=== PATIENT | male | born 1930 | race Caucasian/White ===

== ENCOUNTER 2017-12-09 00:40 | Inpatient (IN) ==
[2017-12-15 11:54] VITALS: BP 151/82
== END 2017-12-15 14:07 | disposition home or self-care (01) | DRG 435 ==
LOC: N.2E 01:14 → SUATTDRO 01:14
PROVIDERS: ADMIT Internal Medicine; ATTEND Internal Medicine
PROC: ERCPWST (ICD-10-PCS; 2017-12-14 12:05)

== ENCOUNTER 2018-01-20 08:28 | Inpatient (IN) ==
[2018-01-20] MEDS ORDERED: PANTOPRAZOLE 40 MG VIAL IV STA (09:03)
[2018-01-20 09:37] LABS: Basophils % 0.3 % (0.0-0.8); Hematocrit 19.7 VOL% (42.0-52.0); Immature Granulocytes Absolute 0.08 #; Lymphocytes # 0.6 10*3/uL (1.4-4.0); Lymphocytes % 7.3 % (21.2-54.2); Mean Corpuscular Hemoglobin 32 PG (27-34); Monocytes # 0.4 10*3/uL (0.11-0.8); Monocytes % 4.4 % (1.7-12.7); Neutrophils # 6.9 10*3/uL (1.4-7.4); Platelet Count 136 T/CUMM (130-400); Red Blood Count 1.95 MC/CUMM (3.8-5.5); White Blood Count 7.9 T/CUMM (4-12)
[2018-01-20 09:42] LABS: Hemoglobin 6.3 GM/DL (14.0-18.0)
[2018-01-20 09:47] LABS: INR 1.1; PT Patient Result 11.2 SECS; Partial Thromboplastin Time 23.3 SECS (0-40)
[2018-01-20 09:53] LABS: Alanine Aminotransferase 14 U/L (16-61); Albumin 2.5 G/DL (3.4-5.0); Alkaline Phosphatase 94 U/L (45-117); Aspartate Amino Transferase 12 U/L (0-37); Bilirubin,Total < 0.39 MG/DL (0.2-1.0); Blood Urea Nitrogen 46 MG/DL (7-18); Calcium 7.8 MG/DL (8.5-10.1); Glucose 127 MG/DL (74-106); Osmolality,Calculated 299.8 MOS/KG (273-304); Potassium 4.7 MMOL/L (3.5-5.1); Sodium 144 MMOL/L (136-145); Total Protein 5.3 G/DL (6.4-8.3)
[2018-01-20] MEDS ORDERED: SODIUM CHLORIDE 0.9% 1,000 ML IV PRN (13:55)
[2018-01-20] MEDS ORDERED: NITROGLYCERIN SL 0.4 MG TABLET SL PRN (17:31)
[2018-01-20] MEDS: SODIUM CHLORIDE 0.9% 1,000 ML IV SCH (19:04)
[2018-01-21 05:59] LABS: Basophils % 0.2 % (0.0-0.8); Eosinophils # 0.1 10*3/uL (0.0-0.87); Eosinophils % 0.5 % (0.00-10.9); Hematocrit 21.7 VOL% (42.0-52.0); Hemoglobin 7.1 GM/DL (14.0-18.0); Immature Granulocytes % 1.1 %; Lymphocytes # 1.5 10*3/uL (1.4-4.0); Lymphocytes % 16.6 % (21.2-54.2); Mean Corpuscular HGB Conc 32.7 GM/DL (32-36); Mean Corpuscular Hemoglobin 31 PG (27-34); Mean Corpuscular Volume 94.8 FL (87-102); Monocytes # 0.7 10*3/uL (0.11-0.8); Monocytes % 7.3 % (1.7-12.7); Neutrophils # 6.9 10*3/uL (1.4-7.4); Neutrophils % 74.3 % (38.7-73.9); Platelet Count 132 T/CUMM (130-400); Red Blood Count 2.29 MC/CUMM (3.8-5.5); Red Cell Distribution Width 16.8 % (9.3-17.3); White Blood Count 9.3 T/CUMM (4-12)
[2018-01-21 06:16] LABS: Osmolality,Calculated 305.7 MOS/KG (273-304); Potassium 4.5 MMOL/L (3.5-5.1)
[2018-01-21] MEDS ORDERED: SODIUM CHLORIDE 0.9% 1,000 ML IV PRN ×2 (07:28→23:23)
[2018-01-21] MEDS ORDERED: LISINOPRIL 20 MG TABLET PO SCH (09:00)
[2018-01-21] MEDS: SODIUM CHLORIDE 0.9% 1,000 ML IV SCH ×3 (09:20→20:55)
[2018-01-21] MEDS: FAMOTIDINE 20 MG TABLET PO SCH (09:22)
[2018-01-21] MEDS: MULTIVITAMIN (CENTRUM) TABLET PO SCH (09:22)
[2018-01-21] MEDS: PANTOPRAZOLE 40 MG TABLET PO SCH (09:22)
[2018-01-21] MEDS: ATENOLOL 25 MG TABLET PO SCH (09:23)
[2018-01-21] MEDS: OMEGA 3 ACID ETHYL ESTERS 1 GM CAPSULE PO SCH (09:23)
[2018-01-21] MEDS: ATORVASTATIN 20 MG TABLET PO SCH (09:23)
[2018-01-21] MEDS: GEMFIBROZIL 600 MG TABLET PO SCH (09:23)
[2018-01-21 19:18] LABS: Hematocrit 20.9 VOL% (42.0-52.0); Hemoglobin 6.8 GM/DL (14.0-18.0)
[2018-01-21] MEDS: ONDANSETRON 4 MG/2 ML VIAL IV PRN (23:36)
[2018-01-22 00:50] LABS: Calcium 7.1 MG/DL (8.5-10.1); Osmolality,Calculated 310.8 MOS/KG (273-304); Potassium 4.4 MMOL/L (3.5-5.1)
[2018-01-22 00:51] LABS: Hematocrit 16.7 VOL% (42.0-52.0); Hemoglobin 5.5 GM/DL (14.0-18.0)
[2018-01-22 07:17] LABS: Hematocrit 22.2 VOL% (42.0-52.0)
[2018-01-22 07:33] LABS: Hemoglobin 7.6 GM/DL (14.0-18.0)
[2018-01-22] MEDS ORDERED: SODIUM CHLORIDE 0.9% 1,000 ML IV PRN ×2 (08:58→16:30)
[2018-01-22] MEDS: ATORVASTATIN 20 MG TABLET PO SCH (09:10)
[2018-01-22] MEDS: ATENOLOL 25 MG TABLET PO SCH (09:10)
[2018-01-22] MEDS: FAMOTIDINE 20 MG TABLET PO SCH (09:10)
[2018-01-22] MEDS: PANTOPRAZOLE 40 MG TABLET PO SCH (09:10)
[2018-01-22] MEDS: MULTIVITAMIN (CENTRUM) TABLET PO SCH (09:10)
[2018-01-22] MEDS: OMEGA 3 ACID ETHYL ESTERS 1 GM CAPSULE PO SCH (09:10)
[2018-01-22] MEDS: GEMFIBROZIL 600 MG TABLET PO SCH (09:11)
[2018-01-22] MEDS: ONDANSETRON 4 MG/2 ML VIAL IV PRN ×2 (09:11→16:41)
[2018-01-22 12:32] LABS: Hematocrit 20.4 VOL% (42.0-52.0); Hemoglobin 6.8 GM/DL (14.0-18.0)
[2018-01-22] MEDS ORDERED: EPINEPHrine 1 MG/ML VIAL ONE (18:26)
[2018-01-22] MEDS ORDERED: GLUCAGON 1 MG VIAL ONE (18:40)
[2018-01-22] MEDS ORDERED: PROPOFOL 200 MG/20 ML VIAL IV ONE (19:29)
[2018-01-22] MEDS ORDERED: ETOMIDATE 40 MG/20 ML VIAL IV ONE (19:29)
[2018-01-22] MEDS ORDERED: PHENYLEPHRINE 1 MG/10 ML SYRINGE IV ONE (19:30)
[2018-01-22 23:37] LABS: Hematocrit 21.5 VOL% (42.0-52.0); Hemoglobin 7.5 GM/DL (14.0-18.0)
[2018-01-23] MEDS: SODIUM CHLORIDE 0.9% 1,000 ML IV SCH ×3 (03:40→21:59)
[2018-01-23] MEDS: ONDANSETRON 4 MG/2 ML VIAL IV PRN (05:03)
[2018-01-23 07:14] LABS: Basophils # 0.1 10*3/uL (0.0-0.2); Basophils % 0.7 % (0.0-0.8); Eosinophils # 0.2 10*3/uL (0.0-0.87); Eosinophils % 2.1 % (0.00-10.9); Hematocrit 21.2 VOL% (42.0-52.0); Hemoglobin 6.9 GM/DL (14.0-18.0); Immature Granulocytes % 4.7 %; Immature Granulocytes Absolute 0.35 #; Lymphocytes # 1.1 10*3/uL (1.4-4.0); Lymphocytes % 14.4 % (21.2-54.2); Mean Corpuscular HGB Conc 32.5 GM/DL (32-36); Mean Corpuscular Hemoglobin 31 PG (27-34); Mean Corpuscular Volume 94.6 FL (87-102); Mean Platelet Volume 12.3 FL (9.6-12.0); Monocytes # 0.6 10*3/uL (0.11-0.8); Monocytes % 8.4 % (1.7-12.7); NRBC # 0.02 10*3/uL; Neutrophils # 5.2 10*3/uL (1.4-7.4); Neutrophils % 69.7 % (38.7-73.9); Red Blood Count 2.24 MC/CUMM (3.8-5.5); Red Cell Distribution Width 15.8 % (9.3-17.3); White Blood Count 7.5 T/CUMM (4-12)
[2018-01-23 07:15] LABS: Hemoglobin 6.9 GM/DL (14.0-18.0)
[2018-01-23 07:25] LABS: Platelet Count 93 T/CUMM (130-400)
[2018-01-23 07:31] LABS: Calcium 7.2 MG/DL (8.5-10.1); Osmolality,Calculated 306.8 MOS/KG (273-304); Potassium 4.3 MMOL/L (3.5-5.1)
[2018-01-23 08:04] LABS: Platelet Estimate Decreased
[2018-01-23 08:06] LABS: Anisocytosis 1+
[2018-01-23 08:07] LABS: Giant Platelets Few
[2018-01-23 08:09] LABS: Poikilocytosis Slight
[2018-01-23] MEDS ORDERED: SODIUM CHLORIDE 0.9% 1,000 ML IV PRN (09:31)
[2018-01-23] MEDS: PANTOPRAZOLE 40 MG TABLET PO SCH (09:49)
[2018-01-23] MEDS: ATORVASTATIN 20 MG TABLET PO SCH (09:49)
[2018-01-23] MEDS: OMEGA 3 ACID ETHYL ESTERS 1 GM CAPSULE PO SCH (09:49)
[2018-01-23] MEDS: FAMOTIDINE 20 MG TABLET PO SCH (09:49)
[2018-01-23] MEDS: MULTIVITAMIN (CENTRUM) TABLET PO SCH (09:49)
[2018-01-23] MEDS: GEMFIBROZIL 600 MG TABLET PO SCH (09:50)
[2018-01-23 13:45] LABS: Hematocrit 20.5 VOL% (42.0-52.0); Hemoglobin 6.8 GM/DL (14.0-18.0)
[2018-01-23 20:38] LABS: Hematocrit 25.2 VOL% (42.0-52.0); Hemoglobin 8.5 GM/DL (14.0-18.0)
[2018-01-24 05:00] LABS: Basophils % 0.5 % (0.0-0.8); Eosinophils # 0.4 10*3/uL (0.0-0.87); Eosinophils % 4.4 % (0.00-10.9); Hematocrit 26.1 VOL% (42.0-52.0); Hemoglobin 8.9 GM/DL (14.0-18.0); Immature Granulocytes % 3.4 %; Immature Granulocytes Absolute 0.29 #; Lymphocytes # 1.5 10*3/uL (1.4-4.0); Lymphocytes % 17.6 % (21.2-54.2); Mean Corpuscular HGB Conc 34.1 GM/DL (32-36); Mean Corpuscular Hemoglobin 31 PG (27-34); Mean Corpuscular Volume 91.3 FL (87-102); Mean Platelet Volume 11.5 FL (9.6-12.0); Monocytes # 0.8 10*3/uL (0.11-0.8); Neutrophils # 5.6 10*3/uL (1.4-7.4); Neutrophils % 65.1 % (38.7-73.9); Platelet Count 113 T/CUMM (130-400); Red Blood Count 2.86 MC/CUMM (3.8-5.5); Red Cell Distribution Width 15.7 % (9.3-17.3); White Blood Count 8.6 T/CUMM (4-12)
[2018-01-24] MEDS: FAMOTIDINE 20 MG TABLET PO SCH (10:02)
[2018-01-24] MEDS: MULTIVITAMIN (CENTRUM) TABLET PO SCH (10:03)
[2018-01-24] MEDS: GEMFIBROZIL 600 MG TABLET PO SCH (10:03)
[2018-01-24] MEDS: ATORVASTATIN 20 MG TABLET PO SCH (10:03)
[2018-01-24] MEDS: OMEGA 3 ACID ETHYL ESTERS 1 GM CAPSULE PO SCH (10:03)
[2018-01-24] MEDS: PANTOPRAZOLE 40 MG TABLET PO SCH (10:03)
[2018-01-25 06:58] LABS: Basophils % 0.8 % (0.0-0.8); Eosinophils # 0.3 10*3/uL (0.0-0.87); Eosinophils % 6.4 % (0.00-10.9); Hematocrit 25.4 VOL% (42.0-52.0); Hemoglobin 8.2 GM/DL (14.0-18.0); Immature Granulocytes % 5.3 %; Immature Granulocytes Absolute 0.28 #; Lymphocytes # 0.9 10*3/uL (1.4-4.0); Lymphocytes % 16.7 % (21.2-54.2); Mean Corpuscular HGB Conc 32.3 GM/DL (32-36); Mean Corpuscular Hemoglobin 31 PG (27-34); Mean Corpuscular Volume 95.1 FL (87-102); Mean Platelet Volume 11.4 FL (9.6-12.0); Monocytes # 0.5 10*3/uL (0.11-0.8); Monocytes % 9.7 % (1.7-12.7); Neutrophils # 3.2 10*3/uL (1.4-7.4); Neutrophils % 61.1 % (38.7-73.9); Platelet Count 126 T/CUMM (130-400); Red Blood Count 2.67 MC/CUMM (3.8-5.5); Red Cell Distribution Width 16.9 % (9.3-17.3); White Blood Count 5.3 T/CUMM (4-12)
[2018-01-25 07:19] LABS: Calcium 7.7 MG/DL (8.5-10.1); Potassium 3.7 MMOL/L (3.5-5.1)
[2018-01-25 07:20] LABS: Eosinophils 8 % (0-10); Hypochromasia 1+; Lymphocytes 15 % (20-55); Platelet Estimate Normal; Segmented Neutrophils 65 % (50-85); Total Cells Counted 100
[2018-01-25] MEDS: PANTOPRAZOLE 40 MG TABLET PO SCH (09:00)
[2018-01-25] MEDS: ATORVASTATIN 20 MG TABLET PO SCH (09:00)
[2018-01-25] MEDS: GEMFIBROZIL 600 MG TABLET PO SCH (09:00)
[2018-01-25] MEDS: FAMOTIDINE 20 MG TABLET PO SCH (09:00)
[2018-01-25] MEDS: MULTIVITAMIN (CENTRUM) TABLET PO SCH (09:00)
[2018-01-25] MEDS: OMEGA 3 ACID ETHYL ESTERS 1 GM CAPSULE PO SCH (09:00)
[2018-01-25] MEDS ORDERED: ACETAMINOPHEN 500 MG TABLET ONE (10:30)
[2018-01-25] MEDS ORDERED: ACETAMINOPHEN 500 MG TABLET PO ONE (10:32)
[2018-01-25] MEDS: ONDANSETRON 4 MG/2 ML VIAL IV PRN (10:50)
[2018-01-25 12:11] LABS: Apearance,Urine CLEAR (Clear); Bilirubin,Urine Negative (Negative); Blood, Urine Negative (Negative); Glucose,Urine (UA) Negative (Negative); Ketones,Urine Negative (Negative); Mucus,Urine Occasional /LPF (Occasional); Nitrite,Urine Negative (Negative); Protein,Urine Negative; RBC,Urine 1 /HPF (0-4); Urine Color Yellow (Yellow); Urine Specific Gravity 1.012 (1.001-1.035); Urine Urobilinogen < 2.0 EU/DL (0.2-1.0); WBC,Urine <1 /HPF (0-6)
[2018-01-25 15:41] LABS: Lactic Acid 2.2 MMOL/L (0.4-2.0)
[2018-01-25] MEDS: PIPERACILLIN/TAZOBACTAM 3,375 MG in SODIUM CHLORIDE 0.9% 100 ML IV SCH ×2 (15:54→22:02)
[2018-01-25] MEDS ORDERED: LACTATED RINGERS 2,100 ML IV ONE (16:37)
[2018-01-25] MEDS ORDERED: LACTATED RINGERS 1,000 ML IV ONE (18:00)
[2018-01-25] MEDS ORDERED: VANCOMYCIN INJ 1,250 MG in SODIUM CHLORIDE 0.9% 250 ML IV SCH (19:00)
[2018-01-25] MEDS: ALBUTEROL/IPRATROPIUM 3 ML NEB RESP TX SCH (19:20)
[2018-01-25] MEDS: SODIUM CHLORIDE 0.9% 1,000 ML IV SCH (22:02)
[2018-01-26] MEDS: ALBUTEROL/IPRATROPIUM 3 ML NEB RESP TX SCH ×4 (00:10→20:05)
[2018-01-26 05:19] LABS: Basophils % 0.1 % (0.0-0.8); Eosinophils % 0.1 % (0.00-10.9); Hematocrit 20.9 VOL% (42.0-52.0); Hemoglobin 6.8 GM/DL (14.0-18.0); Immature Granulocytes % 0.7 %; Immature Granulocytes Absolute 0.09 #; Lymphocytes # 0.4 10*3/uL (1.4-4.0); Lymphocytes % 3.5 % (21.2-54.2); Mean Corpuscular HGB Conc 32.5 GM/DL (32-36); Mean Corpuscular Hemoglobin 31 PG (27-34); Mean Corpuscular Volume 95.9 FL (87-102); Mean Platelet Volume 10.8 FL (9.6-12.0); Monocytes # 0.4 10*3/uL (0.11-0.8); Monocytes % 3.4 % (1.7-12.7); Neutrophils # 11.7 10*3/uL (1.4-7.4); Neutrophils % 92.2 % (38.7-73.9); Platelet Count 102 T/CUMM (130-400); Red Blood Count 2.18 MC/CUMM (3.8-5.5); Red Cell Distribution Width 17.5 % (9.3-17.3); White Blood Count 12.7 T/CUMM (4-12)
[2018-01-26 05:47] LABS: Band Neutrophils 2 % (0-10); Lymphocytes 3 % (20-55); Nucleated Red Blood Cells 1 (0-5); Segmented Neutrophils 94 % (50-85); Total Cells Counted 100
[2018-01-26 05:48] LABS: Macrocytosis 1+
[2018-01-26 05:49] LABS: Albumin 1.5 G/DL (3.4-5.0); Bilirubin,Total 0.7 MG/DL (0.2-1.0); Calcium 7.3 MG/DL (8.5-10.1); Osmolality,Calculated 294.8 MOS/KG (273-304); Potassium 3.6 MMOL/L (3.5-5.1); Total Protein 3.7 G/DL (6.4-8.3)
[2018-01-26] MEDS: PIPERACILLIN/TAZOBACTAM 3,375 MG in SODIUM CHLORIDE 0.9% 100 ML IV SCH ×2 (06:03→16:09)
[2018-01-26] MEDS: SODIUM CHLORIDE 0.9% 1,000 ML IV SCH (08:35)
[2018-01-26] MEDS: FAMOTIDINE 20 MG TABLET PO SCH (08:36)
[2018-01-26] MEDS: PANTOPRAZOLE 40 MG TABLET PO SCH (08:36)
[2018-01-26] MEDS: ATORVASTATIN 20 MG TABLET PO SCH (08:36)
[2018-01-26] MEDS: OMEGA 3 ACID ETHYL ESTERS 1 GM CAPSULE PO SCH (08:36)
[2018-01-26] MEDS: MULTIVITAMIN (CENTRUM) TABLET PO SCH (08:36)
[2018-01-26] MEDS: GEMFIBROZIL 600 MG TABLET PO SCH (08:36)
[2018-01-26] MEDS ORDERED: SODIUM CHLORIDE 0.9% 1,000 ML IV PRN (08:45)
[2018-01-26 10:06] LABS: Hematocrit 22.8 VOL% (42.0-52.0); Hemoglobin 7.2 GM/DL (14.0-18.0)
[2018-01-26] MEDS: ACETAMINOPHEN 325 MG TABLET PO PRN (14:13)
[2018-01-27] MEDS: ALBUTEROL/IPRATROPIUM 3 ML NEB RESP TX SCH ×4 (01:27→19:36)
[2018-01-27] MEDS: PIPERACILLIN/TAZOBACTAM 3,375 MG in SODIUM CHLORIDE 0.9% 100 ML IV SCH ×2 (01:37→09:46)
[2018-01-27] MEDS: SODIUM CHLORIDE 0.9% 1,000 ML IV SCH ×2 (01:38→19:22)
[2018-01-27 05:29] LABS: Basophils % 0.2 % (0.0-0.8); Eosinophils # 0.1 10*3/uL (0.0-0.87); Eosinophils % 0.7 % (0.00-10.9); Hematocrit 25.2 VOL% (42.0-52.0); Hemoglobin 8.6 GM/DL (14.0-18.0); Immature Granulocytes % 1.2 %; Immature Granulocytes Absolute 0.12 #; Lymphocytes # 0.8 10*3/uL (1.4-4.0); Lymphocytes % 8.5 % (21.2-54.2); Mean Corpuscular HGB Conc 34.1 GM/DL (32-36); Mean Corpuscular Hemoglobin 31 PG (27-34); Mean Corpuscular Volume 91.3 FL (87-102); Mean Platelet Volume 11.3 FL (9.6-12.0); Monocytes # 0.8 10*3/uL (0.11-0.8); Monocytes % 7.8 % (1.7-12.7); Neutrophils % 81.6 % (38.7-73.9); Platelet Count 126 T/CUMM (130-400); Red Blood Count 2.76 MC/CUMM (3.8-5.5); Red Cell Distribution Width 17.6 % (9.3-17.3); White Blood Count 9.8 T/CUMM (4-12)
[2018-01-27 05:57] LABS: Eosinophils 3 % (0-10); Lymphocytes 8 % (20-55); Segmented Neutrophils 85 % (50-85); Total Cells Counted 100
[2018-01-27 05:58] LABS: Microcytosis 1+; Platelet Estimate Adequate
[2018-01-27] MEDS: FAMOTIDINE 20 MG TABLET PO SCH (09:27)
[2018-01-27] MEDS: OMEGA 3 ACID ETHYL ESTERS 1 GM CAPSULE PO SCH (09:28)
[2018-01-27] MEDS: MULTIVITAMIN (CENTRUM) TABLET PO SCH (09:28)
[2018-01-27] MEDS: GEMFIBROZIL 600 MG TABLET PO SCH (09:28)
[2018-01-27] MEDS: PANTOPRAZOLE 40 MG TABLET PO SCH (09:28)
[2018-01-27] MEDS: ATORVASTATIN 20 MG TABLET PO SCH (09:28)
[2018-01-27] MEDS: LEVOFLOXACIN 500 MG TABLET PO SCH (16:59)
[2018-01-27 17:53] LABS: Hematocrit 30.9 VOL% (42.0-52.0)
[2018-01-27] MEDS: ACETAMINOPHEN 325 MG TABLET PO PRN (23:22)
[2018-01-28] MEDS: ALBUTEROL/IPRATROPIUM 3 ML NEB RESP TX SCH ×2 (01:49→06:46)
[2018-01-28] MEDS: ACETAMINOPHEN 325 MG TABLET PO PRN (02:22)
[2018-01-28 06:49] LABS: Basophils % 0.5 % (0.0-0.8); Eosinophils # 0.4 10*3/uL (0.0-0.87); Eosinophils % 6.7 % (0.00-10.9); Hematocrit 25.9 VOL% (42.0-52.0); Hemoglobin 8.7 GM/DL (14.0-18.0); Immature Granulocytes % 2.4 %; Immature Granulocytes Absolute 0.14 #; Lymphocytes # 0.8 10*3/uL (1.4-4.0); Lymphocytes % 13.4 % (21.2-54.2); Mean Corpuscular HGB Conc 33.6 GM/DL (32-36); Mean Corpuscular Hemoglobin 31 PG (27-34); Mean Corpuscular Volume 90.9 FL (87-102); Mean Platelet Volume 11.5 FL (9.6-12.0); Monocytes # 0.6 10*3/uL (0.11-0.8); Monocytes % 9.8 % (1.7-12.7); Neutrophils # 3.9 10*3/uL (1.4-7.4); Neutrophils % 67.2 % (38.7-73.9); Platelet Count 145 T/CUMM (130-400); Red Blood Count 2.85 MC/CUMM (3.8-5.5); Red Cell Distribution Width 17.8 % (9.3-17.3); White Blood Count 5.8 T/CUMM (4-12)
[2018-01-28 11:47] VITALS: BP 150/80
[2018-01-28] MEDS: PANTOPRAZOLE 40 MG TABLET PO SCH (11:50)
[2018-01-28] MEDS: ATORVASTATIN 20 MG TABLET PO SCH (11:50)
[2018-01-28] MEDS: FAMOTIDINE 20 MG TABLET PO SCH (11:51)
[2018-01-28] MEDS: GEMFIBROZIL 600 MG TABLET PO SCH (11:51)
[2018-01-28] MEDS: MULTIVITAMIN (CENTRUM) TABLET PO SCH (11:52)
[2018-01-28] MEDS: OMEGA 3 ACID ETHYL ESTERS 1 GM CAPSULE PO SCH (11:52)
[2018-01-28] MEDS: LEVOFLOXACIN 500 MG TABLET PO SCH (11:52)
== END 2018-01-28 13:15 | disposition home health service (06) | DRG 919 ==
LOC: EDSEX → EDUNIT# → EDBD → N.ED 08:28 → SUATTDRO 13:52 → N.EDINP 13:52 → N.4E 16:04
PROVIDERS: ADMIT Internal Medicine; ATTEND Internal Medicine